=== PATIENT | female | born 1955 | race Caucasian/White ===

== ENCOUNTER 2016-05-03 22:23 | Observation (INO) | payer BC ==
[2016-05-03] MEDS ORDERED: Aspirin Low Dose CHEW TAB* 81 MG PO ONE (22:43)
[2016-05-03] MEDS ORDERED: Hydrocortisone 1% CREAM* 30 GM TUBE TOPICAL ONE (23:02)
[2016-05-04 00:15] LABS: Hematocrit 40 % (35-47); Hemoglobin 13.3 g/dl (12.0-16.0); Mean Corpuscular HGB Conc 33 g/dl (31-36); Mean Corpuscular Hemoglobin 31 pg (27-31); Mean Corpuscular Volume 93 fL (80-97); Mean Platelet Volume 10 um3 (7.4-10.4); Red Blood Count 4.34 10^6/ul (4.0-5.4); Red Cell Distribution Width 13 % (10.5-15); White Blood Count 7.3 10^3/ul (3.5-10.8)
[2016-05-04 00:18] LABS: Albumin 4.1 g/dL (3.2-5.2); BUN/Creatinine Ratio 24.7 (8-20); Calcium 9.7 mg/dL (8.6-10.3); EGFR African American 105.3 (>60); EGFR Non-African American 81.9 (>60); Globulin 2.4 g/dL (2-4); Potassium 3.8 mmol/L (3.5-5.0); Total Bilirubin 0.3 mg/dL (0.2-1.0); Total Protein 6.5 g/dL (6.4-8.9)
[2016-05-04] MEDS ORDERED: Ondansetron INJ* 2 MG/ML VIAL IV PRN (00:45)
[2016-05-04] MEDS ORDERED: Acetaminophen TAB* 325 MG PO PRN (00:45)
[2016-05-04] MEDS ORDERED: Albuterol 2.5 MG/3 ML NEB.SOL* (0.083%) INH PRN (00:45)
[2016-05-04] MEDS ORDERED: Morphine INJ* 2 MG/ML 1 ML CARPUJECT IV PRN (00:45)
[2016-05-04] MEDS ORDERED: CMCS: Melatonin (NF) 3 MG TAB PO PRN (00:45)
[2016-05-04] MEDS ORDERED: Metoprolol Succinate XL TAB* 25 MG PO ONE (00:46)
--- NOTE | 2016-05-04 01:18 | ED ---
Avis Ricketts Rebecca, scribed for Dm Branch on 05/03/16 at 2256 . HPI Chest Pain - HPI Summary HPI Summary: Pt is a 60 y/o F who presents to ED c/o CP. Pain began suddenly at 1830 while sitting and has been intermittent since onset with episodes lasting a few seconds. Reports a total of approximately 10 episodes since onset. Sx are not present at time of evaluation. Pain is characterized as sharp and located in the left anterior region without radiation. Sx aggravated and alleviated by nothing. Additionally c/o dizziness and pruritic rash on the R anterior thigh. Rash has been presents for multiple weeks. Denies N/V, SOB, diaphoresis and abd pain. Has been evaluated for prior similar episodes. FHx CAD. SHx former smoker. PMHx depression (controlled with medications). - History of Current Complaint Chief Complaint: EDChestPainROMI Time Seen by Provider: 05/03/16 22:47 Hx Obtained From: Patient Onset/Duration: Started Hours Ago Time of Onset: 18:30 Timing: Intermittent, Lasting Seconds Initial Severity: Mild Current Severity: None Pain Intensity: 0 Pain Scale Used: 0-10 Numeric Chest Pain Location: Left Anterior Chest Pain Radiates: No Character: Sharp/Stabbing Aggravating Factor(s): Nothing Alleviating Factor(s): Nothing Associated Signs and Symptoms: Positive: Dizziness, Other: - Rash on the R thigh. Negative: Shortness of Breath, Diaphoresis, Nausea, Abdominal Pain, Vomiting Related History: Similar Episode/Dx as: - Prior episode - Allergy/Home Medications Allergies/Adverse Reactions: Allergies Allergy/AdvReac Type Severity Reaction Status Date / Time Penicillins [PCN] Allergy Unknown Verified 09/04/14 08:43 Reaction Details Home Medications: Home Medications FLUoxetine* [PROzac*] 20 mg PO DAILY 05/03/16 [History Confirmed 05/03/16] Levothyroxine TAB* [Synthroid TAB*] 125 mcg PO EVERY OTHER DAY 05/03/16 [ History Confirmed 05/03/16] buPROPion SR TAB* [Wellbutrin SR TAB*] 150 mg PO BID 05/03/16 [History Confirmed 05/03/16] Aspirin EC Low Dose* [Ecotrin EC Low Dose*] 81 mg PO DAILY 05/04/16 [History Confirmed 05/04/16] PMH/Surg Hx/FS Hx/Imm Hx Cardiovascular History: Reports: Hx Hypercholesterolemia, Hx Hypertension Psychiatric History: Reports: Hx Depression Denies: Hx Anxiety - Cancer History Hx Chemotherapy: No Hx Radiation Therapy: No Infectious Disease History: No Infectious Disease History: Denies: Traveled Outside the [place] in Last 30 Days - Family History Known Family History: Positive: Cardiac Disease - Social History Alcohol Use: None Substance Use Type: Reports: None Smoking Status (MU): Former Smoker Review of Systems Negative: Skin Diaphoresis Positive: Chest Pain - left anterior Negative: Shortness Of Breath Negative: Abdominal Pain, Vomiting, Nausea Positive: Rash - Pruritic on the R anterior thigh Neurological: Other - Dizziness All Other Systems Reviewed And Are Negative: Yes Physical Exam Triage Information Reviewed: Yes Vital Signs On Initial Exam: Initial Vitals Temp Pulse Resp BP Pulse Ox 97.7 F 63 18 154/78 98 05/03/16 22:28 05/03/16 22:28 05/03/16 22:28 05/03/16 22:28 05/03/16 22:28 Vital Signs Reviewed: Yes Appearance: Positive: Well-Appearing, No Pain Distress Skin: Positive: Warm, Skin Color Reflects Adequate Perfusion, Dry, Other - Maculopapular rash on the right thigh Head/Face: Positive: Normal Head/Face Inspection Eyes: Positive: EOMI, XANDER ENT: Positive: Normal ENT inspection Neck: Positive: Supple, Nontender Respiratory/Lung Sounds: Positive: Clear to Auscultation, Breath Sounds Present Cardiovascular: Positive: RRR, Pulses are Symmetrical in both Upper and Lower Extremities Abdomen Description: Positive: Nontender, Soft Bowel Sounds: Positive: Present Musculoskeletal: Positive: Normal, Strength/ROM Intact Neurological: Positive: Normal, Sensory/Motor Intact, Alert, Oriented to Person Place, Time Diagnostics - Vital Signs Vital Signs Temp Pulse Resp BP Pulse Ox 05/03/16 22:28 97.7 F 63 18 154/78 98 - Laboratory Lab Results: Lab Results 05/03/16 05/03/16 05/03/16 Range/Units 23:50 23:50 23:50 WBC 7.3 (3.5-10.8) 10^3/ul RBC 4.34 (4.0-5.4) 10^6/ul Hgb 13.3 (12.0-16.0) g/dl Hct 40 (35-47) % MCV 93 (80-97) fL MCH 31 (27-31) pg MCHC 33 (31-36) g/dl RDW 13 (10.5-15) % Plt Count 192 (150-450) 10^3/ul MPV 10 (7.4-10.4) um3 Neut % (Auto) 60.7 (38-83) % Lymph % (Auto) 26.6 (25-47) % Gregg % (Auto) 7.8 (1-9) % Eos % (Auto) 4.0 (0-6) % Baso % (Auto) 0.9 (0-2) % Absolute Neuts (auto) 4.4 (1.5-7.7) 10^3/ul Absolute Lymphs (auto) 2.0 (1.0-4.8) 10^3/ul Absolute Monos (auto) 0.6 (0-0.8) 10^3/ul Absolute Eos (auto) 0.3 (0-0.6) 10^3/ul Absolute Basos (auto) 0.1 (0-0.2) 10^3/ul Absolute Nucleated RBC 0 10^3/ul Nucleated RBC % 0 Sodium 137 (133-145) mmol/L Potassium 3.8 (3.5-5.0) mmol/L Chloride 106 (101-111) mmol/L Carbon Dioxide 25 (22-32) mmol/L Anion Gap 6 (2-11) mmol/L BUN 18 (6-24) mg/dL Creatinine 0.73 (0.51-0.95) mg/dL Est GFR ( Amer) 105.3 (>60) Est GFR (Non-Af Amer) 81.9 (>60) BUN/Creatinine Ratio 24.7 H (8-20) Glucose 97 (70-100) mg/dL Lactic Acid 0.5 (0.5-2.0) mmol/L Calcium 9.7 (8.6-10.3) mg/dL Total Bilirubin 0.30 (0.2-1.0) mg/dL AST 14 (13-39) U/L ALT 16 (7-52) U/L Alkaline Phosphatase 43 (34-104) U/L Troponin I 0.00 (<0.04) ng/mL Total Protein 6.5 (6.4-8.9) g/dL Albumin 4.1 (3.2-5.2) g/dL Globulin 2.4 (2-4) g/dL Albumin/Globulin Ratio 1.7 (1-3) Result Diagrams: 05/03/16 23:50 05/03/16 23:50 Lab Statement: Any lab studies that have been ordered have been reviewed, and results considered in the medical decision making process. - Radiology CXR Xray Interpretation: No Acute Changes Radiology Interpretation Completed By: ED Physician - EKG 2234 Cardiac Rate: Bradycardia - [address] Segment: Non-Specific - T-wave inversions in leads II-IV EKG Comparison: Other - T wave inversions new from EKG on 09/04/2014 Chest Pain Course/Dx - Course Course Of Treatment: pt came with chest pains and labs and cxr done. ekg showed t changes in v2 v4 and will admit for futher work up. - Chest Pain Differential Diagnosis/HQI/PQRI: Angina, Chest Wall - Diagnoses Provider Diagnoses: Chest pain at rest - Provider Notifications Discussed Care Of Patient With: Dr. Menezes, hospitalist, accepts pt for admission. Time Discussed With Above Provider: 23:15 Discharge - Discharge Plan Condition: Stable Disposition: ADMITTED TO [facility] The documentation as recorded by the Avis lee Rebecca accurately reflects the service I personally performed and the decisions made by Sarina perez Emmanuel.
--- NOTE | 2016-05-04 01:25 | HP ---
H&P (Free Text) History and Physical: PCP: Martha Carpio MD Date/Time of Evaluation: 05/04/2016 0040 CC: chest pain HPI: Mrs Faria is a 60YO female HX HTN & HLD presents with onset ~1800 of brief sharp L para-sternal non-exertional non-radiating chest pain associated with sweating and radiation to the L jaw and L shoulder. She denies SOB, nausea , light-headedness, & palpitations. Work up thusfar is negative. She has a confusing cardiac history stating that she had been told in the remote past by Bonita Mora MD cardiology that she needed a pacemaker and was set up to have a free one implanted as she had not insurance. However, when she arrived at that appointment the engraver ornamental design there reviewed her situation and stated she was not a candidate for one. PMedHx HTN HLD hypothyroidism anxiety Allergies Penicillins [PCN] Allergy (Verified 09/04/14 08:43) Unknown Reaction Details Ambulatory Orders Carvedilol TAB* [Coreg TAB*] 3.125 mg PO DAILY 09/04/14 Levothyroxine TAB* [Synthroid 100 MCG TAB*] 100 mcg PO EVERY OTHER DAY 09/04/14 Losartan TAB* [Cozaar TAB*] 50 mg PO DAILY 09/04/14 Lovastatin [Altoprev] 20 mg PO BEDTIME 09/04/14 FLUoxetine* [PROzac*] 20 mg PO DAILY 05/03/16 Levothyroxine TAB* [Synthroid TAB*] 125 mcg PO EVERY OTHER DAY 05/03/16 buPROPion SR TAB* [Wellbutrin SR TAB*] 150 mg PO BID 05/03/16 Aspirin EC Low Dose* [Ecotrin EC Low Dose*] 81 mg PO DAILY 05/04/16 PSurgHx R leg surgery 2nd trauma SocHx: former smoker quit ~6years ago w/ ~20PYHX, minimal alcohol, no recreational drugs; cleans homes for a living; full code status FamHx: Mother passed in her 50s 2nd complications of alcoholism. ROS: as above, otherwise reviewed and all were negative Constitutional: NAD, normally developed, well-nourished white female with purple hair and eyebrows vitals: Vital Signs Temp 36.5 C 05/03/16 22:28 Pulse 63 05/03/16 22:28 Resp 18 01/24/17 22:28 BP 154/78 05/03/16 22:28 Pulse Ox 98 05/03/16 22:28 Intake & Output 05/03/16 05/03/16 05/04/16 11:59 23:59 11:59 Weight 132 lb HEENM: atraumatic; sclera/conjunctiva: non-icteric/clear; blephara: normal; hearing: clinically intact; oropharynx: clear, mucosa moist Neck: soft tissue: non-tender; thyroid: normal Pulmonary: clear to auscultation bilaterally, good aeration, no accessory muscle use CV: RR/RR, normal S1S2, no carotid bruit, no jugular venous distention, 2+ B DP/ PT, no edema Abdominal: soft, non-distended, non-tender, no rebound/guarding/rigidity, normoactive bowel sounds, no hepatosplenomegaly or masses, no costovertebral angle tenderness Musculoskeletal: general: grossly intact; gait: stable Integumental: well healed R lateral thigh incision, lightly erythematous & scaly rash R anterior thigh Psychiatric orientation: AA&O to PPS affect: calm mood: pleasant eye contact: good content: reliable responses: timely insight: good Testing: Lab Results 05/03/16 05/03/16 05/03/16 Range/Units 23:50 23:50 23:50 WBC 7.3 (3.5-10.8) 10^3/ul RBC 4.34 (4.0-5.4) 10^6/ul Hgb 13.3 (12.0-16.0) g/dl Hct 40 (35-47) % MCV 93 (80-97) fL MCH 31 (27-31) pg MCHC 33 (31-36) g/dl RDW 13 (10.5-15) % Plt Count 192 (150-450) 10^3/ul MPV 10 (7.4-10.4) um3 Neut % (Auto) 60.7 (38-83) % Lymph % (Auto) 26.6 (25-47) % [place] % (Auto) 7.8 (1-9) % Eos % (Auto) 4.0 (0-6) % Baso % (Auto) 0.9 (0-2) % Absolute Neuts (auto) 4.4 (1.5-7.7) 10^3/ul Absolute Lymphs (auto) 2.0 (1.0-4.8) 10^3/ul Absolute Monos (auto) 0.6 (0-0.8) 10^3/ul Absolute Eos (auto) 0.3 (0-0.6) 10^3/ul Absolute Basos (auto) 0.1 (0-0.2) 10^3/ul Absolute Nucleated RBC 0 10^3/ul Nucleated RBC % 0 Sodium 137 (133-145) mmol/L Potassium 3.8 (3.5-5.0) mmol/L Chloride 106 (101-111) mmol/L Carbon Dioxide 25 (22-32) mmol/L Anion Gap 6 (2-11) mmol/L BUN 18 (6-24) mg/dL Creatinine 0.73 (0.51-0.95) mg/dL Est GFR ( Amer) 105.3 (>60) Est GFR (Non-Af Amer) 81.9 (>60) BUN/Creatinine Ratio 24.7 H (8-20) Glucose 97 (70-100) mg/dL Lactic Acid 0.5 (0.5-2.0) mmol/L Calcium 9.7 (8.6-10.3) mg/dL Total Bilirubin 0.30 (0.2-1.0) mg/dL AST 14 (13-39) U/L ALT 16 (7-52) U/L Alkaline Phosphatase 43 (34-104) U/L Troponin I 0.00 (<0.04) ng/mL Total Protein 6.5 (6.4-8.9) g/dL Albumin 4.1 (3.2-5.2) g/dL Globulin 2.4 (2-4) g/dL Albumin/Globulin Ratio 1.7 (1-3) ECG, personally reviewed: NSR rate NSR rate 57, T-wave inversions V1-4; prior ECGs have consistently shown LBBB which is not present today CXR, personally reviewed: no acute process Impression: 60F presenting with chest pain for r/o ACS DIAGNOSIS & PLAN Primary chest pain r/o ACS : telemetry : trend troponin : supplemental oxygen : oxygen : metoprolol : chemical NST in AM : supportive care ? resolution of LBBB : recheck ECG Secondary HTN : continue losartan & carvedilol HLD : continue lovastatin hypothyroidism : continue levothyroxine anxiety : continue fluoxetine & bupropion SR Admission Rational: observation for r/o ACS DVTp: heparin SQ Code Status: full HCP: son, Noah Perez
[2016-05-04] MEDS ORDERED: LORazepam INJ* 2 MG/ML 1 ML VIAL IV PRN (04:14)
[2016-05-04] MEDS ORDERED: Omeprazole CAP* 20 MG PO SCH (06:00)
--- NOTE | 2016-05-04 07:54 | RAD ---
INDICATION: Chest pain. COMPARISON: Comparison is made with a prior chest x-ray study from September 04, 2014. TECHNIQUE: Dual-energy PA and lateral views of the chest were obtained. FINDINGS: The heart is within normal limits in size. Mediastinal and hilar contours appear within normal limits. The lungs are hyperinflated and clear. No pleural effusion is seen. IMPRESSION: Findings suggestive of COPD, no evidence for acute finding.
--- NOTE | 2016-05-04 08:01 | PN ---
Subjective Date of Service: 05/04/16 Interval History: . patient reports she feels much better today but did experience one episode of a "twinge of pain" at rest in her left chest wall that lasted 2 seconds then disappeared. No reproducible pain. No SOB or diaphoresis. No nausea. Patient reports she would like to go home. Objective Active Medications: Acetaminophen (Tylenol Tab*) 650 mg PO Q6H PRN PRN Reason: FEVER/PAIN Albuterol (Ventolin 2.5 Mg/3 Ml Neb.Liz*) 2.5 mg INH Q2H PRN PRN Reason: SOB/WHEEZING Aspirin (Aspirin Tab*) 325 mg PO DAILY [facility] Hydrocortisone (Hytone Cream 1%*) 1 applic TOPICAL TID SHERYL Lorazepam (Ativan Inj*) 1 mg IV BEDTIME PRN PRN Reason: SLEEP Melatonin (Melatonin (Nf)) 3 mg PO BEDTIME PRN; Protocol PRN Reason: Sleep Last Admin: 05/04/16 02:58 Dose: 3 mg Morphine Sulfate (Morphine Inj (Syringe)*) 2 mg IV Q4H PRN PRN Reason: PAIN - MILD Omeprazole (Prilosec Cap*) 20 mg PO DAILY@0600 [facility] Last Admin: 05/04/16 05:25 Dose: Not Given Ondansetron HCl (Zofran Inj*) 4 mg IV Q6H PRN PRN Reason: NAUSEA Vital Signs 05/04/16 05/04/16 05/04/16 02:00 03:24 03:58 Temperature 98.7 F 98.0 F Pulse Rate 61 60 52 Respiratory 18 18 20 Rate Blood Pressure 121/63 140/65 110/45 (mmHg) O2 Sat by Pulse 98 100 97 Oximetry Oxygen Devices in Use Now: None Appearance: 60 yo female sitting up in bed in NAD. A+O x3 Eyes: No Scleral Icterus, PERRLA Ears/Nose/Mouth/Throat: NL Teeth, Lips, Gums, Mucous Membranes Moist Neck: NL Appearance and Movements; NL JVP Respiratory: Symmetrical Chest Expansion and Respiratory Effort, Clear to Auscultation Cardiovascular: NL Sounds; No Murmurs; No JVD, RRR, No Edema Abdominal: NL Sounds; No Tenderness; No Distention Lymphatic: No Cervical Adenopathy Extremities: No Edema, No Clubbing, Cyanosis Skin: No Rash or Ulcers, No Nodules or Sclerosis Neurological: Alert and Oriented x 3, NL Sensation, NL Gait, NL Muscle Strength and Tone Lines/Tubes/Other Access: Clean, Dry and Intact Peripheral IV Result Diagrams: 05/03/16 23:50 05/03/16 23:50 Additional Lab and Data: Lab Results 05/03/16 05/03/16 05/03/16 Range/Units 23:50 23:50 23:50 WBC 7.3 (3.5-10.8) 10^3/ul RBC 4.34 (4.0-5.4) 10^6/ul Hgb 13.3 (12.0-16.0) g/dl Hct 40 (35-47) % MCV 93 (80-97) fL MCH 31 (27-31) pg MCHC 33 (31-36) g/dl RDW 13 (10.5-15) % Plt Count 192 (150-450) 10^3/ul MPV 10 (7.4-10.4) um3 Neut % (Auto) 60.7 (38-83) % Lymph % (Auto) 26.6 (25-47) % [place] % (Auto) 7.8 (1-9) % Eos % (Auto) 4.0 (0-6) % Baso % (Auto) 0.9 (0-2) % Absolute Neuts (auto) 4.4 (1.5-7.7) 10^3/ul Absolute Lymphs (auto) 2.0 (1.0-4.8) 10^3/ul Absolute Monos (auto) 0.6 (0-0.8) 10^3/ul Absolute Eos (auto) 0.3 (0-0.6) 10^3/ul Absolute Basos (auto) 0.1 (0-0.2) 10^3/ul Absolute Nucleated RBC 0 10^3/ul Nucleated RBC % 0 Sodium 137 (133-145) mmol/L Potassium 3.8 (3.5-5.0) mmol/L Chloride 106 (101-111) mmol/L Carbon Dioxide 25 (22-32) mmol/L Anion Gap 6 (2-11) mmol/L BUN 18 (6-24) mg/dL Creatinine 0.73 (0.51-0.95) mg/dL Est GFR ( Amer) 105.3 (>60) Est GFR (Non-Af Amer) 81.9 (>60) BUN/Creatinine Ratio 24.7 H (8-20) Glucose 97 (70-100) mg/dL Lactic Acid 0.5 (0.5-2.0) mmol/L Calcium 9.7 (8.6-10.3) mg/dL Total Bilirubin 0.30 (0.2-1.0) mg/dL AST 14 (13-39) U/L ALT 16 (7-52) U/L Alkaline Phosphatase 43 (34-104) U/L Troponin I 0.00 (<0.04) ng/mL Total Protein 6.5 (6.4-8.9) g/dL Albumin 4.1 (3.2-5.2) g/dL Globulin 2.4 (2-4) g/dL Albumin/Globulin Ratio 1.7 (1-3) Assess/Plan/Problems-Billing Assessment: Ms. Faria is a 60 yo female with a PMH of HTN, HLD, hypothyroidism and anxiety who presented 05/03 with c/o CP associated with seating and radiation to the L jaw and L shoulder. - Patient Problems (1) Chest pain Comment: - Troponins flat x3 - No ischemic EKG changes other than noted no LBBB on EKG that appeared in prior EKGs - Nondiagnostic Lexiscan by EKG due to LBBB. Nuclear Cardiac Stress test showing Intermediate showing a moderate-sized defect in the anterior septal wall with the anterior components appears to be partially reversible. Curb-side consult with Dr. Ross who recommends the patient f/u with Dr. Camilo as an outpt. Ok to DC to home (2) Hypothyroid Comment: - TSH 12. Per pt last TSH was within the year and was WNLs. Recently cut synthroid down, plan to increase back to 125 mcg/day and recheck TSH in 6-8 weeks. (3) HTN (hypertension) Comment: - controlled - continue losartan,coreg (4) Anxiety Comment: with depression continue wellbutrin and prozac (5) DVT prophylaxis (6) Full code status Status and Disposition: OBV. Plan for DC home.
[2016-05-04] MEDS ORDERED: Aspirin TAB* 325 MG PO SCH (09:00)
[2016-05-04 12:00] VITALS: BP 115/59
[2016-05-04] MEDS: Hydrocortisone 1% CREAM* 30 GM TUBE TOPICAL SCH ×2 (12:08→12:09)
[2016-05-04] MEDS ORDERED: Regadenoson* 0.4 MG/5 ML SYRINGE ONE (12:56)
[2016-05-04 13:59] LABS: TSH (Thyroid Stimulating Horm) 12.16 mcIU/mL (0.34-5.60)
--- NOTE | 2016-05-04 14:41 | RAD ---
Edited for charges. Indication: Chest pain, diaphoresis. Myocardial perfusion scan was performed utilizing 1 day protocol. 10.6 mCi of technetium 99m tetrofosmin was performed for the rest portion of the study. Pharmacological stress was applied and 25.1 mCi of technetium 99m tetrofosmin was then injected. There is a photopenic area in the anterior wall extending into the septum. There may be some mild reversible changes in the anterior wall component of the defect. The ejection fraction at stress is 60%. Evaluation of wall motion demonstrates hypokinesis of the septum. IMPRESSION: Moderate-sized defect in the anterior septal wall with the anterior components appear to be partially reversible. Normal ejection fraction however hypokinesis of the septum is noted. ASSESSMENT: Intermediate risk Based on imaging criteria from ACC/AHA 2002 Guideline Update for the Management of Patients With Chronic Stable Angina Table 23. Noninvasive Risk Stratification. ADDENDUM REPORT: The patient apparently has a left bundle branch block. The septal defect could be an artifact from the left bundle branch block. Correlation with prior studies may be helpful. Addended on 05/05/2016 12:28:[address] Moira Costa. [facility]
--- NOTE | 2016-05-05 00:16 | DS ---
DISCHARGE SUMMARY: DATE OF ADMISSION: 05/03/16 DATE OF DISCHARGE: 05/04/16 ATTENDING PHYSICIAN: Dr. Velasquez* (report dictated by Johnathan Singh NP) PRIMARY CARE PROVIDER: Lawrence Carpio MD. REFERRING TO: Amarjit Camilo DO, application project leader. PRIMARY DIAGNOSES: 1. Chest pain of unclear etiology. 2. Hypothyroidism. SECONDARY DIAGNOSES: 1. Hypertension. 2. Hyperlipidemia. 3. Anxiety/depression. DISCHARGE MEDICATIONS: 1. Aspirin EC low dose 81 mg p.o. daily. 2. Wellbutrin SR 150 mg p.o. b.i.d. 3. Synthroid 125 mcg p.o. daily. 4. Prozac 20 mg p.o. daily. 5. Coreg 3.125 mg p.o. daily. 6. Lovastatin 20 mg p.o. at bedtime. 7. Losartan 50 mg p.o. daily. HISTORY OF PRESENT ILLNESS AND HOSPITAL COURSE: Please see history and physical by Dr. Menezes for full admission details, but in summary this is a 60-year-old female who presented on 05/03/16 with complaint of chest pain described as brief sharp left parasternal nonexertional nonradiating chest pain associated with sweating and radiation to the left jaw and left shoulder. She denied palpitations, lightheadedness, nausea or shortness of breath. She came to the emergency department and was admitted to the hospitalist service for chest pain, rule out acute coronary syndrome. She was monitored on telemetry, which showed no arrhythmias. She had 3 spot troponins of 0.00. She underwent a Lexiscan, which was nondiagnostic by EKG due to her left bundle-branch block. She also underwent a nuclear cardiac stress test, which showed intermediate showing a "moderate size defect in the anteroseptal wall with anterior components appeared to be partially reversible." I curbside consulted Dr. Ross, application project leader interventionalist, who recommended the patient follow up with Dr. Camilo, application project leader, as an outpatient but believes with the flat troponins and no EKG changes and no further chest pain, the patient can be safely discharged to home. the patient's TSH is 12 and per the patient her last TSH was within the last year and was within normal limits. Within the last few months, her primary care provider cut down her Synthroid. I discussed with the patient to increase her Synthroid back to 125 mcg a day and recheck her TSH in 6 to 8 weeks. The patient has done well throughout her hospitalization. Other labs are unremarkable. She has been ambulating without difficulty and states that she is at her baseline and would like to be discharged to home. DISCHARGE PLAN: 1. Follow up with Dr. Carpio on 05/13/16 at 2 p.m. 2. The patient was instructed to call Dr. Camilo, application project leader, for a followup appointment. 3. Worsening or concerning signs and symptoms were discussed with the patient. She is instructed to return to the emergency department with any concerns. The patient states understanding. CONDITION ON DISCHARGE: Stable. TIME SPENT: Approximately 60 minutes was spent on this discharge. JOHNATHAN SINGH NP CC: Lawrence Carpio MD; Amarjit Camilo DO * [id number]/[facility] #: [id number]
== END 2016-05-04 17:05 | disposition home or self-care (01) ==
LOC: ED 22:23 → MEDTELE 05-04 01:32
PROVIDERS: ADMIT Hospitalist; ATTEND Internal Medicine
DX: R07.9 Chest pain, unspecified (principal); E03.9 Hypothyroidism, unspecified; I10 Essential (primary) hypertension; F41.9 Anxiety disorder, unspecified; F32.9 Major depressive disorder, single episode, unspecified; Z79.82 Long term (current) use of aspirin
CPT/HCPCS: 36415; 71020; 78452; 80053; 83605; 84443; 84484; 85025; 93005; 93017; 96374; 96375; 99284; A9270-GY; A9502; G0378; J2785

== ENCOUNTER 2016-11-10 11:17 | Emergency (ER) | payer BC ==
[2016-11-10 11:44] VITALS: BP 125/72
--- NOTE | 2016-11-10 12:10 | UC ---
Throat Pain/Nasal Pietro HPI - HPI Summary HPI Summary: Noticed very mild sense of fullness or something caught in throat today. Has 2 very itchy spots with large redness on R upper arm starting 2 days ago. Denies any known severe allergy that has resulted in throat swelling or angioedema in the past. R arm itchy, no pain or drainage. - History of Current Complaint Hx Obtained From: Patient ?: No Onset/Duration: Gradual Onset, Lasting Hours Severity: Mild Cough: None Associated Signs & Symptoms: Positive: Rash - r areas R upper arm. Negative: Wheezing, Hoarseness, Sinus Discomfort, Nasal Discharge, Fever, Vomiting <Michelle Duque - Last Filed: 11/10/16 12:04> <Byron Michele - Last Filed: 11/10/16 12:28> - History of Current Complaint Chief Complaint: [employer] Stated Complaint: THROAT FEELS LIKE IT IS CLOSING UP Time Seen by Provider: 11/10/16 11:49 - Allergies/Home Medications Allergies/Adverse Reactions: Allergies Allergy/AdvReac Type Severity Reaction Status Date / Time Penicillins [PCN] Allergy Hives Verified 11/10/16 11:44 PMH/Surg Hx/FS Hx/Imm Hx Endocrine History: Thyroid Disease Cardiovascular History: Hypertension Other Cardiovascular History: BBB - Surgical History Surgical History: Yes Surgery Procedure, Year, and Place: hysterectomy, R leg fx repair - Family History Known Family History: Positive: Cardiac Disease - Social History Occupation: Employed Full-time Alcohol Use: Weekly Substance Use Type: None Smoking Status (MU): Former Smoker Type: Cigarettes Length of Time of Smoking/Using Tobacco: 20 yrs When Did the Patient Quit Smoking/Using Tobacco: 1999 <Michelle Duque - Last Filed: 11/10/16 12:04> Review of Systems Constitutional: Negative Skin: Rash - R arm Eyes: Negative ENT: Sore Throat - globus sensation Respiratory: Negative Cardiovascular: Negative Gastrointestinal: Negative Genitourinary: Negative Motor: Negative Neurovascular: Negative Musculoskeletal: Negative Neurological: Negative Psychological: Negative All Other Systems Reviewed And Are Negative: Yes <Michelle Duque - Last Filed: 11/10/16 12:04> Physical Exam Triage Information Reviewed: Yes Appearance: Well-Appearing, No Pain Distress, Well-Nourished Vital Signs: Initial Vital Signs Temp 98.1 F 11/10/16 11:38 Pulse 70 11/10/16 11:38 Resp 16 11/10/16 11:38 BP 125/72 11/10/16 11:38 Pulse Ox 100 11/10/16 11:38 Vital Signs Reviewed: Yes Eye Exam: Normal Eyes: Positive: Conjunctiva Clear ENT: Positive: Hearing grossly normal, Pharynx normal - oropharynx widely patent , TMs normal, Other: - possible very mild trace edema on uvula. Negative: Tonsillar swelling, Tonsillar exudate Dental Exam: Normal Neck exam: Normal Neck: Positive: Supple, Nontender, No Lymphadenopathy Respiratory Exam: Normal Respiratory: Positive: Chest non-tender, Lungs clear, Normal breath sounds, No respiratory distress, No accessory muscle use Cardiovascular Exam: Normal Cardiovascular: Positive: RRR, No Murmur Musculoskeletal Exam: Normal Neurological Exam: Normal Neurological: Positive: Alert Psychological Exam: Normal Skin: Positive: significant lesion(s) - 2 raised papules R upper arm, both surrounded by approx 4cm halo of erythema. No streaking, drainage, or tenderness. <Michelle Duque - Last Filed: 11/10/16 12:04> Vital Signs: Initial Vital Signs Temp 98.1 F 11/10/16 11:38 Pulse 70 11/10/16 11:38 Resp 16 11/10/16 11:38 BP 125/72 11/10/16 11:38 Pulse Ox 100 11/10/16 11:38 <Byron Michele - Last Filed: 11/10/16 12:28> Throat Pain/Nasal Course/Dx - Differential Dx/Diagnosis Provider Diagnoses: insect stings R upper arm. possible trace uvular edema <Michelle Duque - Last Filed: 11/10/16 12:04> Discharge <Michelle Duque - Last Filed: 11/10/16 12:04> <Byron Michele - Last Filed: 11/10/16 12:28> - Discharge Plan Condition: Stable Disposition: HOME Prescriptions: predniSONE TAB* [Deltasone TAB*] 40 mg PO DAILY #4 tab Patient Education Materials: Insect Bite or Sting (ED) Referrals: Lawrence Carpio MD [Primary Care Provider] - Additional Instructions: As we discussed, you have a slight trace of swelling on your uvula. It is probably not related to the insect stings you have since those are 2 days old. I do not expect you to have worsening or worrisome symptoms, but if you do have difficulty with speaking, swallowing, or trouble breathing, please call 911.
== END 2016-11-10 12:16 | disposition home or self-care (01) ==
LOC: UCEAST 11:17
DX: T63.441A Toxic effect of venom of bees, accidental (unintentional), initial encounter (principal); R21 Rash and other nonspecific skin eruption; Y92.531 Health care provider office as the place of occurrence of the external cause; E07.9 Disorder of thyroid, unspecified; I10 Essential (primary) hypertension; I45.4 Nonspecific intraventricular block; Z88.0 Allergy status to penicillin; Z87.891 Personal history of nicotine dependence
CPT/HCPCS: 99212; G0463